=== PATIENT | male | born 1970 | race Caucasian/White ===

== ENCOUNTER 2025-03-01 14:03 | Emergency (ER) | payer BC, SELFPAY ==
[2025-03-01 14:05] VITALS: BP 168/93
[2025-03-01 14:56] VITALS: BMI 28.0
[2025-03-01] MEDS: NSS 1000 IV (14:56)
[2025-03-01 15:00] VITALS: BP 146/97
[2025-03-01 15:23] LABS: D-Dimer 0.78 ug/mlFEU (0.00-0.50)
[2025-03-01 15:24] LABS: ALT (SGPT) 40 U/L (0-50); AST (SGOT) 47 U/L (17-59); Albumin 4.2 g/dl (3.5-5.0); Alkaline Phosphatase 85 U/L (38-126); Blood Urea Nitrogen 20 mg/dl (9-20); Calcium 8.7 mg/dl (8.4-10.2); Carbon Dioxide 23 mmol/L (22-30); Chloride 104 mmol/L (98-107); Estimated Creatinine Clearance 65 ml/min; Glucose 95 mg/dl (70-99); Potassium 4.2 mmol/L (3.5-5.1); Sodium 135 mmol/L (135-145); Total Bilirubin 0.7 mg/dl (0.2-1.3); Total Protein 6.5 g/dl (6.3-8.2); eGFR > 60.00
[2025-03-01 15:34] LABS: NT-proBNP < 20.0 pg/ml; Troponin I < 0.012 ng/ml
[2025-03-01 15:51] LABS: Hematocrit 49.6 % (39.0-52.0); Hemoglobin 16.9 g/dL (13.0-18.0); Mean Corp Hgb Conc. 34.1 g/dL (33.0-37.0); Mean Corpuscular Hgb 31.8 pg (27.0-31.0); Mean Corpuscular Volume 93.2 fL (80.0-94.0); Mean Platelet Volume 9.4 fL (7.4-10.4); Platelet Count 167 10^3/uL (130-400); Red Blood Cell Count 5.32 10^6/uL (4.70-6.10); White Blood Cell Count 25.2 10^3/uL (4.8-10.8)
[2025-03-01 16:00] VITALS: BP 133/81
[2025-03-01 16:51] LABS: % Basophils 0.3 % (0-2); % Eosinophils 0.2 % (0-6); % Immature Granulocytes 0.2 % (0-0.5); % Lymphocytes 82.9 % (20.5-51.1); % Monocytes 2.8 % (1.7-9.3); % Neutrophils 13.6 % (42.2-75.2); Absolute Basophils 0.1 10^3/uL (0-0.2); Absolute Lymphocytes 20.9 10^3/uL (1.2-3.4); Absolute Monocytes 0.7 10^3/uL (0.1-0.6); Absolute Neutrophils 3.5 10^3/uL (1.4-6.5); Nucleated Red Blood Cells % 0.7 % (-)
--- NOTE | 2025-03-01 17:45 | ED.GENMED ---
History of Present Illness
General
Chief Complaint: Weakness
Source: patient and spouse
Exam Limitations: none
Time Seen by Provider: 03/01/25 14:25
Nursing documentation reviewed up to this point in time: agreed with
History of Present Illness
History of Present Illness:
54-year-old male with past medical history of CLL, hyperlipidemia presenting to the emergency department today with concerns of cough some shortness of breath and some chest tightness over the past 8 days gradually worsening over the past few days.
Recently flew to [place] yesterday. Denies any specific ongoing chest pain. Has had a cough some upper respiratory symptoms that started last week. Worsening shortness of breath over the past few days. Denies any history of blood clots recent
trauma surgery immobilization or leg swelling. Has been taking testosterone replacement for many years.
Past History
Past History
ED Past Medical History: Cancer (CLL, diagnosed 2017, currently being observed.) and Hypercholesterolemia
ED Past Surgical History: Orthopedic (Left shoulder surgery)
Social History
Tobacco: Non-smoker
Alcohol: Occasional
Personal:
Living: with family
Employment: Employed
Family History
Family History: Other (Mother with history of syncopal episodes); Negative CAD or Sudden
Review of Systems
Review of Systems
Allergies reviewed?: Yes
All Other Systems: ROS reviewed and negative except as documented in HPI and ROS
Phy Exam
Physical Exam
Physical Exam:
GENERAL: Alert , in no apparent distress
EYE: pupils equal and reactive
NECK: Supple, no significant adenopathy.
ENT: o/p clr, mmm.
CARDIAC: Regular rate and rhythm .
LUNGS: Clear breath sounds bilaterally, no acute respiratory distress, no wheezes/rales/rhonchi
ABDOMEN: Soft, without focal tenderness, no r/g, no cvat
NEUROLOGICAL: Alert and oriented, no focal neuro deficits
SKIN: Warm and dry, skin intact.
MUSCULOSKELETAL: No edema, well perfused.
PSYCH: Normal and appropriate interaction.
Course
Orders/Labs/Results
Orders:
Orders
03/01/25 14:09
EKG [Electrocardiogram (*1)] Urgent
Reason for Study: Chest Pain
EKG- Treatment ONCE
03/01/25 14:52
Cardiac Monitoring- Treatment ONCE
0.9% Sodium Chloride 1000 ml [Nss] 1,000 ml IV BOLUS
CR Chest - 2 Views Urgent
Comment:
Reason For Exam: central chest pressure
03/01/25 14:55
Complete Blood Count/With Diff Urgent
Comprehensive Metabolic Panel Urgent
D-Dimer Urgent
Magnesium Urgent
NT-proBNP Urgent
PTT Urgent
Troponin I Urgent
03/01/25 15:48
CT Chest PE Study Urgent
Comment:
Reason For Exam: elevated dimer
Abnormal Lab Results
03/01/25
14:55
WBC 25.2 H 10^3/uL
(4.8-10.8)
MCH 31.8 H pg
(27.0-31.0)
Absolute Lymphs (auto) 20.9 H 10^3/uL
(1.2-3.4)
Absolute Monos (auto) 0.7 H 10^3/uL
(0.1-0.6)
Neutrophils % 13.6 L %
(42.2-75.2)
Lymphocytes % 82.9 H %
(20.5-51.1)
D-Dimer 0.78 H ug/mlFEU
(0.00-0.50)
03/01/25 14:55
03/01/25 14:55
Vital Signs
Initial and Last Documented VS:
Initial Vital Signs
Temp Pulse Resp BP Pulse Ox
98.7 F 95 16 168/93 97
03/01/25 14:05 03/01/25 14:05 03/01/25 14:05 03/01/25 14:05 03/01/25 14:05
Last Documented Vital Signs
Temp Pulse Resp BP Pulse Ox
98.7 F 72 18 133/81 98
03/01/25 14:05 03/01/25 16:00 03/01/25 16:00 03/01/25 16:00 03/01/25 16:00
MDM/Problems Addressed
MDM/Problems Addressed:
54-year-old male presenting to the emergency department today with concerns of upper respiratory symptoms initially starting 8 days ago but worsening shortness of breath over the past few days. Also some mild chest tightness. Upon arrival blood
pressure elevated otherwise vital signs are normal. Normal pulse ox. Labs showing elevated white count 25.2 typically in the 40s with his CLL. This is monitored closely as an outpatient. Otherwise dimer mildly elevated concerning this a CT PE
was performed that did not show any emergent findings. Incidental finding of a nodule was discussed with the patient who will follow-up for. Otherwise labs unremarkable troponin negative ACS very unlikely no evidence of emergent pathology advised
for close outpatient follow-up. Return precautions given.
*Critical Care Note
Total Time (30-74mins, 75-104mins- exclusive of procedures): Not Applicable
ED Attending Note
-
Portions of this chart may have been created with voice recognition software.� Occasional wrong word or��sound alike� substitutions may have occurred due to the inherent limitations of voice recognition software.
Discharge Plan
Departure
Patient Disposition: Home (Routine Discharge)
Date of Disposition: 03/01/25
Time of Disposition: 17:47
Patient with high blood pressure during this ER visit?: No
Condition: Good
Covid-19: Not Applicable
Discharge Problem:
CLL (chronic lymphocytic leukemia), Acute viral syndrome, Pulmonary nodule
Referrals:
Shiraz Davis DO [Family Provider] -
Activity Restrictions/Additional Instructions:
You came to the emergency department today with concerns of shortness of breath and ongoing respiratory symptoms over the past few days. Here he did have a reassuring assessment. You did have your ongoing chronic white count elevation. Please
follow-up closely for this. Otherwise imaging was reassuring. There was an incidental finding of a nodule. Please follow-up for this. Return for any worsening, new or concerning symptoms.
Interventions
Interventions:
*Risk Screen - Suicide Last Done: 03/01/25 14:05
*Neglect/Abuse Screening Last Done: 03/01/25 14:05
ED- Cardiac Assessment Last Done: 03/01/25 15:13
ED- Neurological Assessment Last Done: 03/01/25 15:13
ED- Pulmonary Assessment Last Done: 03/01/25 15:13
Discharge Date and Time
Print Language: NIUEAN
== END 2025-03-01 17:59 | disposition home or self-care (01) ==
LOC: EMR 14:03
PROVIDERS: Physician Assistant; EMERGENCY PHYSICIAN Emergency Medicine; FAMILY PHYSICIAN Family Medicine
DX: C91.10 Chronic lymphocytic leukemia of B-cell type not having achieved remission (principal); B34.9 Viral infection, unspecified; R91.1 Solitary pulmonary nodule
CPT/HCPCS: 99285; 71046; 71275; 80053; 83735; 83880; 84484; 85025; 85379; 85730; 93005; Q9967